=== PATIENT | female | born 1965 | race Caucasian/White ===

== ENCOUNTER → 2017-11-14 06:37 | Outpatient (CLI) | payer BC, SELFPAY ==
--- NOTE | 2017-11-14 12:01 | PFT ---
INTRODUCTION: The patient is a 51-year-old female currently under the care of Anastasia Knowles the presents for pulmonary function testing secondary to a diagnosis of shortness of breath. Respiratory therapy reports good patient effort. Bronchodilators were used during testing. INTERPRETATION: Forced expiration spirometry demonstrates no evidence of a large airways obstructive ventilatory defect. There was no significant response to aerosolized bronchodilators, based upon strict ATS criteria. Spirogram's are of good quality and plateau normally. The respiratory flow volume loop appears normal. Body plethysmography was performed and reveals a trend towards hyperinflation. Diffusing capacity by single breath CO is within normal limits at 76% of predicted. IMPRESSION: These pulmonary function studies are essentially within normal limits. There are no previous pulmonary function studies available for comparison. Clinical correlation is recommended.
== END ==
PROVIDERS: Family Provider Family Medicine; PCP Family Medicine
DX: R06.02 Shortness of breath (principal)
CPT/HCPCS: 94060; 94726; 94729

== ENCOUNTER 2019-06-21 11:07 | Emergency (ER) | payer BC, SELFPAY ==
[2019-06-21 11:08] VITALS: BP 157/116; PULSE 108; RESP 19; TEMP 36.6; O2SAT 100; BMI 34.2
--- NOTE | 2019-06-21 11:26 | VDLE_ITS ---
Reason For Study: PAIN RIGHT LEFT GSV is normal. GSV is normal. CFV is compressible, spontaneous, phasic, CFV is compressible, spontaneous, phasic, competent and demonstrates normal competent, and demonstrates normal augmentation. augmentation. FV is compressible, spontaneous, phasic, FV is compressible, spontaneous, phasic, competent and demonstrates normal competent and demonstrates normal augmentation. augmentation. POP V is compressible, spontaneous, phasic, POP V is compressible, spontaneous, phasic, competent and demonstrates normal competent and demonstrates normal augmentation. augmentation. T/P Trunk is compressible. T/P Trunk is compressible. PTV is compressible. PTV is compressible. RT PerV is compressible. LT PerV is compressible. Interpretation Summary Deep veins of the lower extremities are bilaterally patent and compressible segmentally. There is no evidence of deep vein thrombosis on either side. Valvular competence appears intact within the proximal deep venous systems bilaterally. The great saphenous veins appear bilaterally patent and compressible segmentally. Ordering Physician: Isis Nowak Referring Physician: QING HALL Performed By: Vivienne Bower, NATANCS, RVT
--- NOTE | 2019-06-21 11:38 | EKG12_ITS ---
Test Reason : LOWER EXTREMETY Blood Pressure : / mmHG Vent. Rate : 084 BPM Atrial Rate : 084 BPM P-R Int : 182 ms QRS Dur : 124 ms QT Int : 402 ms P-R-T Axes : 052 -05 049 degrees QTc Int : 475 ms Normal sinus rhythm Left bundle branch block Abnormal ECG Confirmed by TELLY FARLEY, NAZIA ([id number]), senior technical editor ESDRAS HAYES ([id number]) on 06/23/2019 1:53:27 PM Referred By: JOSE Confirmed By:NAZIA VARNER MD
--- NOTE | 2019-06-21 11:40 | ED.DCSUM_ITS ---
History of Present Illness Chief Complaint: Lower Extremity Injury Informant: Patient Onset: Days Context: Gradual Onset Timing: Continuous Narrative: She is a 53-year-old female with history of hypertension on losartan presenting with bilateral leg pain, lightheadedness and generalized malaise. Patient states on Friday, 2 days ago she drove 6 hours up to [place] and back for football game. She states she did not exert herself any more than normal. Since then she has had pain and swelling in her lower legs/calves. It is worse on the left than the right. She denies any swelling in her feet. She denies any history of blood clots, pulmonary lungs were DVT. She denies any history of cancer estrogen therapy. Patient also notes that since then she is just been feeling unwell and lightheaded. She feels a little short of breath. She denies any recent medication changes. She denies any chest pain. She denies any cramping or numbness in her hands or feet. She does state that she feels a little tingling over her thighs. She denies any other complaints at this time. Past Medical History - Allergies and Home Meds Allergies/Adverse Reactions: Allergies No Known Allergies Allergy (Verified 06/21/19 11:07) Primary Care Physician: Geovanni Hyatt MD [Primary Care Provider] - Past Medical History: - - Hypertension Lives: Spouse/ Significant Other Smoking Status: Unknown if ever smoked Review of Systems All systems negative except as indicated General: Reports: Malaise, - - Lightheaded Respiratory: Reports: Dyspnea Musculoskeletal: Reports: Myalgias, Swelling - Bilateral calfs, Extremity Pain - BILATERAL calfs Neurological: Reports: Parasthesia - Thighs Physical Exam Vital Signs/Narrative: Vital Signs Temp Pulse Resp BP Pulse Ox 06/21/19 11:08 97.8 F 108 H 19 H 157/116 H 100 Inital Vital Signs reviewed: Yes General: Well nourished, Well developed, No Acute Distress Head: Normocephalic, Atraumatic Eyes: Perrl, EOMI ENT: Moist mucous membranes, No rhinorrhea Neck: Supple, Nontender Cardiovascular: Regular rhythm, No murmurs, Tachycardia Respiratory: No distress, CTA bilaterally, Chest nontender Abdomen: Soft, Nontender, Nondistended, Normal bowel sounds Back: Nontender, Normal Inspection Extremities: No edema, Edema - Nonpitting edema bilateral calfs, lateral tenderness to palpation, no associated pedal edema, Calf Tenderness, - - LE Compartments are soft Skin: Normal color, No rash Neurological: Alert, Oriented x3, Cranial nerves II-XII grossly intact, Normal Strength, Normal Sensation Psychological: Normal affect, Normal Mood Diagnostic/Tx/Re-eval Laboratory Results - last 24 hr 06/21/19 06/21/19 06/21/19 11:15 11:15 11:15 WBC 6.1 RBC 5.12 Hgb 14.9 Hct 45.2 MCV 88.3 MCH 29.1 MCHC 33.0 RDW Std Deviation 37.3 RDW Coeff of Josiah 11.7 Plt Count 364 MPV 9.4 Immature Gran % (Auto) 0.300 Neut % (Auto) 63.8 Lymph % (Auto) 23.9 Wirt % (Auto) 9.4 Eos % (Auto) 1.8 Baso % (Auto) 0.8 Absolute Neuts (auto) 3.9 Absolute Lymphs (auto) 1.45 Nucleated RBC % 0 Sodium 140 Potassium 3.3 L Chloride 104 Carbon Dioxide 30.0 Anion Gap 6 BUN 13 Creatinine 1.00 Estim Creat Clear Calc 50.22 Est GFR (MDRD) Af Amer 75 Est GFR (MDRD) Non-Af 62 BUN/Creatinine Ratio 13.0 Glucose 81 Calcium 9.4 Total Creatine Kinase 2430 H Troponin I < 0.015 Diagnostic Data Chest X-Ray 06/21/19 12:00 IMPRESSION: Normal portable chest. Electronically Signed: Ismael Olsen, at 13:26 EDT Tel , Service support , - Rhythm Strip Rhythm Strip: Sinus Rhythm Rate: 84 Ectopy: None - EKG Initial EKG Interpretation: Sinus Rhythm, LBBB, - - Rate of 84 Normal intervals Left axis Left bundle branch block is new compared to prior EKG on 10/31/2009 - Medical Decision Making Patient is evaluated for atraumatic bilateral lower extremity pain. She states it feels like an ache in her calves. She did recently travel to and from [place] in a car. Duplex is negative for DVT. Patient's lab work is largely unremarkable. Potassium is mildly low but not enough to cause these symptoms. Patient states she does have some mild back pain but she has no symptoms consistent with cauda equina syndrome. Troponin is normal. Patient is orthostatic negative but her heart rate does increase with standing. She is given IV fluids. On reevaluation patient is still having a lot of pain in her calf. Concern for possible rhabdo versus a myositis so CPK is added on. This is significantly elevated. Patient is given a second liter of fluid. She is drinking fluids and urinating well as well as having normal kidney function I do not think she needs admission for this. Patient has an appointment to see the PA at her PCP office in the morning. Patient is counseled on her abnormal EKG and need for short follow-up. She is counseled on signs and symptoms requiring return to emergency room. She verbalizes agreement understand this plan. I did discuss the case with patient's PA and her need for short follow-up. ED Disposition - Plan for ED Patient: Disposition: Home or Assisted Living Diagnosis: Elevated CPK, Leg pain, bilateral, Abnormal ECG Instructions: Rhabdomyolysis Referrals: Geovanni Hyatt MD [Primary Care Provider] - Additional Instructions: Please drink plenty of fluids. You have evidence of increased muscle breakdown which is causing the pain in your legs. If you have decrease in her urine output please return to the emergency room. You develop any chest pain or difficulty breathing please return to the emergency room. He did have an abnormal EKG. Please make sure he follow-up with your primary care doctor for further cardiac monitoring however you do not need to be admitted to the hospital at this time.
[2019-06-21] MEDS: 0.9% Normal Saline 1,000 ML 1000 ML IV (11:45)
--- NOTE | 2019-06-21 12:00 | RAD_ITS ---
EXAM DESCRIPTION: PORTABLE AP CHEST CLINICAL HISTORY: 53 years Female, chest pain shortness of breath COMPARISON: None FINDINGS: The thorax is intact. The heart and mediastinum appear to be within normal limits. The lungs appear to be well areated without evidence of pneumonic consolidation or pleural effusion. RAD/Chest 1 View (Portable) IMPRESSION: Normal portable chest. Electronically Signed: Ismael Losen, at 13:26 EDT Tel , Service support ,
[2019-06-21 12:05] LABS: Absolute Lymphocyte Count 1.45 X10^3/uL (0.83-4.51); Absolute Neutrophil Count 3.9 X10^3/uL (2.0-7.7); Basophil# 0.05 X10^3/uL; Basophil% 0.8 % (0-1); Eosinophil# 0.11 X10^3/uL; Eosinophils% 1.8 % (0-5); Hematocrit 45.2 % (37-47); Hemoglobin 14.9 g/dL (12.0-15.0); Lymphocyte # 1.45 X10^3/ul (4.0); Lymphocyte % 23.9 % (19-41); Mean Corpuscular Hgb 29.1 pg (27.0-32.0); Mean Corpuscular Volume 88.3 fL (81-99); Mean Platelet Vol. 9.4 fl (6.2-12.0); Monocyte# 0.57 X10^3/uL; Monocyte% 9.4 % (0-10); NRBC Flagged by Analyzer 0 % (0-5); Neutrophil # 3.87 X10^3/uL (2.7-7.7); Neutrophil % 63.8 % (47-70); Platelet Count 364 K/mm3 (150-450); RBC Distribution Width CV 11.7 % (11.6-14.6); RBC Distribution Width SD 37.3 fl (35.1-43.9); Red Blood Count 5.12 M/mm3 (4.2-5.4); White Blood Count 6.1 K/mm3 (4.4-11.0)
[2019-06-21 12:13] VITALS: BP 162/74; BP 165/91; BP 175/87; PULSE 85; PULSE 88; PULSE 91
[2019-06-21 12:18] LABS: Anion Gap 6 (5-15); BUN 13 mg/dL (7-18); Calcium,Total 9.4 mg/dL (8.5-10.1); Chloride 104 mmol/L (98-107); EST Glomerular Filtration Rate 62 mL/min (>60); Est Glom Filt Rate - Afr Amer 75 mL/min (>60); Estimated Creatinine Clearance 50.22 ml/min; Glucose 81 mg/dL (74-106); Potassium 3.3 mmol/L (3.5-5.1); Sodium Level 140 mmol/L (136-145)
[2019-06-21 13:26] VITALS: BP 142/82; PULSE 77; RESP 16; O2SAT 100
[2019-06-21] MEDS: Ketorolac 15 MG/ML Vial IV (15:06)
[2019-06-21] MEDS: diazePAM 5 MG Tablet PO (15:06)
[2019-06-21 15:40] LABS: CPK Total, Creatine Kinase 2430 U/L (26-192)
[2019-06-21] MEDS: 0.9% Normal Saline 1,000 ML 999 ML IV (16:36)
[2019-06-21 18:15] VITALS: BP 146/84; PULSE 76; RESP 16; O2SAT 100
--- NOTE | 2019-06-21 18:16 | ED.RN ---
IV DC'ED, CATHETER INTACT, SMALL GAUZE DRESSING PLACED. DISCHARGE INSTRUCTIONS GIVEN TO AND REVIEWED WITH PATIENT, PATIENT DENIES QUESTIONS OR CONCERNS AND VOICES UNDERSTANDING OF DISCHARGE INSTRUCTIONS. PT AMBULATES OUT OF ROOM WITHOUT DIFFICULTY.
== END 2019-06-21 18:16 | disposition home or self-care (01) ==
PROVIDERS: Emergency Provider Emergency Medicine; Family Provider Family Medicine; PCP Family Medicine
DX: M79.604 Pain in right leg (principal); M79.605 Pain in left leg; M79.89 Other specified soft tissue disorders; R74.8 Abnormal levels of other serum enzymes; E87.6 Hypokalemia; R94.31 Abnormal electrocardiogram [ECG] [EKG]; I10 Essential (primary) hypertension; R20.2 Paresthesia of skin; R42 Dizziness and giddiness; R06.00 Dyspnea, unspecified; I44.7 Left bundle-branch block, unspecified; M54.9 Dorsalgia, unspecified; Z79.899 Other long term (current) drug therapy
CPT/HCPCS: 71045; 80048; 82550; 84484; 85025; 93005; 93970; 96361; 96374; 99285; J7030; A4216

== ENCOUNTER → 2019-06-24 08:57 | Outpatient (CLI) | payer BC, SELFPAY ==
[2019-06-21 11:08] VITALS: BMI 34.2
== END ==
PROVIDERS: Family Provider Family Medicine; PCP Family Medicine; Referring Provider Nurse Practitioner Primary Care; Visit Provider Nurse Practitioner Primary Care
DX: R00.2 Palpitations (principal)
CPT/HCPCS: 93225; 93226

== ENCOUNTER → 2019-06-29 10:45 | Outpatient (CLI) | payer BC, SELFPAY ==
[2019-06-21 11:08] VITALS: BMI 34.2
--- NOTE | 2019-06-29 10:48 | ECHOD_ITS ---
Reason For Study: LBBB Procedure This was a 2D Doppler, Color Flow transthoracic echocardiogram. Exam performed in department. Left Ventricle Normal LV size. Left ventricular systolic function is normal. The estimated ejection fraction is 65 %. Septal motion consistent with IVCD. Diastolic function is indeterminate. No regional wall motion abnormalities noted. Right Ventricle Normal RV size. Normal systolic function. Atria Normal left atrium. Normal right atrium. No doppler evidence for ASD. Mitral Valve There is no mitral annular calcification. Normal mitral valve. Trivial mitral valve insufficiency. Tricuspid Valve Normal tricuspid valve. Trivial tricuspid valve insufficiency. Aortic Valve Trisinus/trileaflet aortic valve. Mild diffuse aortic valve thickening. Pulmonic Valve The pulmonic valve is not well visualized. Trivial pulmonic valve insufficiency. Great Vessels The aortic root is not well visualized. Pericardium/Pleural No pericardial effusion. MMode/2D Measurements & Calculations LVIDd: 2.9 cm IVSd: 1.6 cm LA dimension: 3.6 cm LVIDs: 1.9 cm LVPWd: 0.95 cm RVDd: 2.9 cm FS: 35.0 % LAV(MOD-bp): 42.5 ml LA A4 area: 15.6 cm2 RA A4 area: 9.9 cm2 LAV(MOD-bp) Indexed: 23.5 ml/m2 LAV(MOD-sp2): 41.1 ml LAV(MOD-sp4): 44.6 ml Time Measurements MV dec time: 0.26 sec Doppler Measurements & Calculations MV E max oliver: 71.3 cm/sec Lat Peak E' Oliver: 5.7 cm/sec Med Peak E' Oliver: 6.3 cm/sec MV A max oliver: 92.1 cm/sec E/E' lat: 12.4 E/E' med: 11.4 MV E/A: 0.77 MV V2 max: 94.5 cm/sec MV P1/2t max oliver: 77.0 cm/sec Ao V2 max: 125.1 cm/sec MV max P.6 mmHg MV P1/2t: 75.9 msec Ao max P.3 mmHg MV V2 mean: 51.8 cm/sec MV dec slope: 297.2 cm/sec2 MV mean P.3 mmHg MVA(P1/2t): 2.9 cm2 MV V2 VTI: 20.7 cm LV V1 max: 94.4 cm/sec MR max oliver: 532.8 cm/sec PA V2 max: 136.8 cm/sec LV V1 max P.6 mmHg MR max P.5 mmHg Interpretation Summary Left ventricular systolic function is normal. The estimated ejection fraction is 65 %. Septal motion consistent with IVCD. Trivial mitral valve insufficiency. Trivial tricuspid valve insufficiency. Mild diffuse aortic valve thickening. Trivial pulmonic valve insufficiency. Diastolic function is indeterminate. Ordering Physician: Elizabeth Camp Referring Physician: Elizabeth Camp Performed By: Je Blevins RCS
== END ==
PROVIDERS: Family Provider Family Medicine; PCP Family Medicine; Referring Provider Nurse Practitioner Primary Care; Visit Provider Nurse Practitioner Primary Care
DX: I44.7 Left bundle-branch block, unspecified (principal)
CPT/HCPCS: 93306

== ENCOUNTER 2019-08-02 08:43 | Day surgery (SDC) | payer BC, SELFPAY ==
[2019-07-21 12:32] VITALS: BMI 34.4
[2019-07-21 17:12] LABS: Absolute Lymphocyte Count 1.83 X10^3/uL (0.83-4.51); Absolute Neutrophil Count 4.1 X10^3/uL (2.0-7.7); Basophil# 0.03 X10^3/uL; Basophil% 0.4 % (0-1); Eosinophil# 0.26 X10^3/uL; Eosinophils% 3.8 % (0-5); Hematocrit 42.6 % (37-47); Hemoglobin 14.3 g/dL (12.0-15.0); Lymphocyte # 1.83 X10^3/ul (4.0); Lymphocyte % 26.4 % (19-41); Mean Corp Hgb Conc 33.6 g/dL (32-36); Mean Corpuscular Hgb 29.2 pg (27.0-32.0); Mean Corpuscular Volume 86.9 fL (81-99); Mean Platelet Vol. 9.2 fl (6.2-12.0); Monocyte# 0.63 X10^3/uL; Monocyte% 9.1 % (0-10); NRBC Flagged by Analyzer 0 % (0-5); Neutrophil # 4.13 X10^3/uL (2.7-7.7); Neutrophil % 59.7 % (47-70); Platelet Count 377 K/mm3 (150-450); RBC Distribution Width CV 11.7 % (11.6-14.6); RBC Distribution Width SD 37.1 fl (35.1-43.9); White Blood Count 6.9 K/mm3 (4.4-11.0)
[2019-07-21 17:27] LABS: Anion Gap 6 (5-15); BUN 14 mg/dL (7-18); BUN/Creat Ratio 12.6 RATIO (10-20); Calcium,Total 8.9 mg/dL (8.5-10.1); Chloride 106 mmol/L (98-107); Creatinine, Serum 1.11 mg/dL (0.55-1.02); EST Glomerular Filtration Rate 55 mL/min (>60); Est Glom Filt Rate - Afr Amer 67 mL/min (>60); Glucose 103 mg/dL (74-106); Potassium 3.9 mmol/L (3.5-5.1); Sodium Level 142 mmol/L (136-145)
[2019-07-29 15:00] VITALS: BMI 34.4
[2019-08-02 09:00] LABS: Internal QC Validated? YES +Cl - CLEAR BKGD; Pregnancy, Urine Negative Negative
--- NOTE | 2019-08-02 10:58 | CL.D_ITS ---
Patient Name: RAYSHAWN JACKSON Study Date: 08/02/2019 Performing: Tristian Rondon MD Ht: 61.02 inches 155 cm : 1965 Wt: 182.98 lbs 83 kg Age: 53 Gender: female BSA: 1.82 PROCEDURE(S) PERFORMED [id number] CLINICAL PROFILE AND INDICATIONS Indications: Suspected CAD Heart Failure: None Stress/Imaging Stress/Image Study Performed: No CAD Presentations: Symptom unlikely to be ischemic. CONCLUSIONS Normal coronary arteries RECOMMENDATIONS Medical therapy DESCRIPTION OF PROCEDURE The patient arrived to the procedure lab. The risks and benefits of the procedure as well as a full d escription of our services here and current unavailability of surgical backup were fully explained to the patient and/or their significant other prior to the catheterization. The Timeout was completed, verifying the correct patient and procedure. The patient's procedural site was prepped and draped in the usual fashion. Local anesthetic was given subcutaneously to right radial region with Lidocaine 2% . Using a modified Seldinger technique, arterial access was obtained via the right radial artery, a 6 Fr fistula sheath was inserted. Right Coronary Artery selective angiography was then performed in m ultiple views using a 5 Fr. 4.0 Scheller catheter. Left Coronary Artery selective angiography was perfor med in multiple views using a 5 Fr. 4.0 Scheller catheter. Left Ventriculography was performed in COHEN pr ojection using a 5 Fr. Pigtail catheter. LV to AO pullback pressures were then recorded.The arterial sheath was pulled and a TR Band was applied for hemostasis 8cc air CORONARY ANGIOGRAPHY DOMINANCE: Right Dominant LEFT HEART ASSESSMENT Left Ventricular Ejection Fraction: by LV Gram 65 % Normal LV wall motion Normal Left Ventricular systolic function LEFT MAIN: Angiographically normal LEFT ANTERIOR DESCENDING ARTERY: Angiographically normal CIRCUMFLEX ARTERY: Angiographically normal RIGHT CORONARY ARTERY: Angiographically normal COMPLICATIONS No Complications PROCEDURE MEDICATIONS Versed 1 mg IV Fentanyl 50 mcg IV Oxygen: 2 L/min via nasal cannula Heparin diluted in 23cc Heparinized saline. Patient given 10cc IA of this solution. 08/02/2019 10:43 :23 Verapamil 2.5mg, Ntg 100mcgs, 2000 units of Heparin diluted in 23cc Heparinized saline. Patient give n 10cc IA of this solution. 08/02/2019 10:43:23 SUMMARY OF HEMODYNAMIC DATA Time AIR REST ECG 09:07:29 AO 114/81 (98) SA 10:42:37 LV 0/-158, -154 10:47:23 LV 111/11, 16 10:47:45 LVp 118/15, 20 10:47:53 AOp 130/77 (100) 10:47:58 Signed By Tristian Rondon MD On 08/02/2019 10:57:38 Tristian Rondon MD
== END 2019-08-02 13:15 | disposition home or self-care (01) ==
LOC: CLSP 08:44
PROVIDERS: Family Provider Family Medicine; PCP Family Medicine; Referring Provider Internal Medicine Cardiovascular Disease; Visit Provider Internal Medicine Cardiovascular Disease
DX: R06.02 Shortness of breath (principal); I44.7 Left bundle-branch block, unspecified; I10 Essential (primary) hypertension; R00.2 Palpitations
CPT/HCPCS: 36415; 80048; 81025; 85025; 93458; 99152; 99153; J7040; C1769; C1894; Q9967

== ENCOUNTER → 2020-11-13 10:47 | Outpatient (CLI) | payer BC, SELFPAY ==
[2020-11-13 09:54] VITALS: BMI 34.7
[2020-11-13 12:59] LABS: Anion Gap 7 (5-15); BUN 15 mg/dL (7-18); Calcium,Total 9.1 mg/dL (8.5-10.1); Chloride 105 mmol/L (98-107); EST Glomerular Filtration Rate 62 mL/min (>60); Est Glom Filt Rate - Afr Amer 75 mL/min (>60); Glucose 92 mg/dL (74-106); Magnesium 2.3 mg/dL (1.6-2.6); Sodium Level 141 mmol/L (136-145); T4 Free Direct 0.87 ng/dL (0.76-1.46); Thyroid Stim Hormone (TSH) 1.72 uIU/mL (0.358-3.74)
== END ==
PROVIDERS: PCP Family Medicine; Referring Provider Nurse Practitioner Family; Visit Provider Nurse Practitioner Family
DX: R00.2 Palpitations (principal); I44.7 Left bundle-branch block, unspecified
CPT/HCPCS: 36415; 80048; 83735; 84439; 84443

== ENCOUNTER 2020-12-01 15:51 | Outpatient (RCR) | payer BC, SELFPAY ==
[2020-11-13 09:54] VITALS: BMI 34.7
[2020-12-01] MEDS: COVID-19 VACC, MRNA(PFIZER)/PF 30 MCG/0.3 ML SYRINGE IM (08:44)
[2020-12-22] MEDS: COVID-19 VACC, MRNA(PFIZER)/PF 30 MCG/0.3 ML SYRINGE IM (08:36)
== END 2020-12-01 23:59 ==
LOC: IMMUN 15:51
PROVIDERS: PCP Family Medicine; Visit Provider Family Medicine
DX: Z23 Encounter for immunization (principal)
CPT/HCPCS: 0001A; 0002A; 91300

== ENCOUNTER → 2022-01-28 | Outpatient (CLI) | payer BC, SELFPAY ==
[2022-01-28 13:14] LABS: AST(SGOT) 21 U/L (15-37); Alanine Aminotransfer ALT/SGPT 34 U/L (13-56); Albumin, Serum 3.7 g/dL (3.2-5.0); Alkaline Phosphatase 105 U/L (45-117); Anion Gap 7 (5-15); BUN 17 mg/dL (7-18); BUN/Creat Ratio 17.6 RATIO (10-20); Bilirubin, Direct 0.05 mg/dL (0.00-0.30); Chloride 107 mmol/L (98-107); Cholesterol 216 mg/dL (200); Creatinine, Serum 0.97 mg/dL (0.55-1.02); EST Glomerular Filtration Rate 64 mL/min (>60); Est Glom Filt Rate - Afr Amer 77 mL/min (>60); Globulin 3.7 g/dL (2.2-4.2); Glucose 89 mg/dL (74-106); High Density Lipoprotein 42 mg/dL; Magnesium 2.1 mg/dL (1.6-2.6); Potassium 3.8 mmol/L (3.5-5.1); Protein, Total 7.4 g/dL (6.4-8.2); Sodium Level 140 mmol/L (136-145); Triglycerides 205 mg/dL; Very Low Density Lipoprotein 41 mg/dL (5-40)
== END | disposition home or self-care (01) ==
PROVIDERS: PCP Family Medicine; Referring Provider Nurse Practitioner Family; Visit Provider Nurse Practitioner Family
DX: I10 Essential (primary) hypertension (principal); R00.2 Palpitations
CPT/HCPCS: 36415; 80048; 80061; 80076; 83735

== ENCOUNTER → 2023-02-18 | Outpatient (CLI) | payer BC, SELFPAY ==
[2023-02-18 11:09] LABS: AST(SGOT) 21 U/L (15-37); Alanine Aminotransfer ALT/SGPT 29 U/L (13-56); Albumin, Serum 3.9 g/dL (3.2-5.0); Alkaline Phosphatase 115 U/L (45-117); Bilirubin, Direct 0.07 mg/dL (0.00-0.30); Cholesterol 204 mg/dL (200); Globulin 3.4 g/dL (2.2-4.2); High Density Lipoprotein 44 mg/dL; Protein, Total 7.3 g/dL (6.4-8.2); Triglycerides 182 mg/dL; Very Low Density Lipoprotein 36 mg/dL (5-40)
== END | disposition home or self-care (01) ==
LOC: LAB 10:11
PROVIDERS: PCP Family Medicine; Referring Provider Internal Medicine Cardiovascular Disease; Visit Provider Internal Medicine Cardiovascular Disease
DX: I10 Essential (primary) hypertension (principal)
CPT/HCPCS: 36415; 80061; 80076

== ENCOUNTER → 2023-08-18 | Outpatient (CLI) | payer BC, SELFPAY ==
[2023-08-18 08:18] LABS: AST(SGOT) 18 U/L (15-37); Alanine Aminotransfer ALT/SGPT 27 U/L (13-56); Albumin, Serum 3.7 g/dL (3.2-5.0); Alkaline Phosphatase 106 U/L (45-117); Bilirubin, Direct 0.08 mg/dL (0.00-0.30); Cholesterol 210 mg/dL (200); Globulin 3.5 g/dL (2.2-4.2); High Density Lipoprotein 47 mg/dL; Protein, Total 7.2 g/dL (6.4-8.2); Triglycerides 154 mg/dL; Very Low Density Lipoprotein 31 mg/dL (5-40)
== END | disposition home or self-care (01) ==
LOC: LAB 07:16
PROVIDERS: PCP Family Medicine; Referring Provider Nurse Practitioner Family; Visit Provider Nurse Practitioner Family
DX: R00.2 Palpitations (principal); R06.09 Other forms of dyspnea; I10 Essential (primary) hypertension; I44.7 Left bundle-branch block, unspecified
CPT/HCPCS: 36415; 80061; 80076